=== PATIENT | female | born 1945 | race Caucasian/White ===

== ENCOUNTER 2022-05-30 09:36 | Outpatient (CLI) | payer MEDICARE, BC, SELFPAY | END 2022-05-30 09:37 | disposition home or self-care (01) | LOC: INJ CL 09:37 | PROVIDERS: PCP Physician Assistant Medical; Visit Provider Family Medicine | DX: M54.16 Radiculopathy, lumbar region (principal); M51.36 Other intervertebral disc degeneration, lumbar region | CPT/HCPCS: 62323; J0702; Q9966 ==

== ENCOUNTER 2022-09-13 12:45 | Outpatient (RCR) | payer MEDICARE, BC, SELFPAY | END 2022-10-27 13:21 | disposition home or self-care (01) | PROVIDERS: PCP Physician Assistant Medical; Visit Provider Physician Assistant Medical | DX: M25.571 Pain in right ankle and joints of right foot (principal); Z51.89 Encounter for other specified aftercare | CPT/HCPCS: 97110; 97163; 97530; 97760; 97763 ==

== ENCOUNTER 2023-02-21 09:15 | Outpatient (RCR) | payer MEDICARE, BC, SELFPAY | END 2023-06-21 23:59 | disposition home or self-care (01) | PROVIDERS: PCP Physician Assistant Medical; Visit Provider Family Medicine | DX: M65.332 Trigger finger, left middle finger (principal); Z51.89 Encounter for other specified aftercare | CPT/HCPCS: 97035; 97110; 97140; 97165; 97535; X5282 ==

== ENCOUNTER 2023-08-14 07:52 | Outpatient (CLI) | payer MEDICARE, BC, SELFPAY | END 2023-08-14 07:53 | disposition home or self-care (01) | LOC: INJ CL 07:53 | PROVIDERS: PCP Physician Assistant Medical; Visit Provider Family Medicine | DX: M54.16 Radiculopathy, lumbar region (principal); M51.36 Other intervertebral disc degeneration, lumbar region | CPT/HCPCS: 62323; J0702; Q9966 ==

== ENCOUNTER 2023-09-12 16:00 | Outpatient (RCR) | payer MEDICARE, BC, SELFPAY | END 2023-09-13 07:37 | disposition home or self-care (01) | PROVIDERS: PCP Physician Assistant Medical; Visit Provider Physician Assistant Medical | DX: M54.50 Low back pain, unspecified (principal); Z51.89 Encounter for other specified aftercare | CPT/HCPCS: 97110; 97112; 97116; 97140; 97161; 97164; 97535 ==

== ENCOUNTER 2024-09-21 09:00 | Outpatient (CLI) | payer MEDICARE, BC, SELFPAY | END 2024-09-21 09:01 | disposition home or self-care (01) | LOC: AMB 09-26 01:30 | PROVIDERS: PCP Physician Assistant Medical; Visit Provider Emergency Medicine | DX: K92.0 Hematemesis (principal); R10.9 Unspecified abdominal pain | CPT/HCPCS: A0425; A0427 ==

== ENCOUNTER 2024-09-21 09:27 | Emergency (ER) | payer MEDICARE, BC, SELFPAY ==
[2024-09-21] VITALS (8 sets, daily range): BP systolic 92–110; BP diastolic 62–81; PULSE 69–93; RESP 12–16; TEMP 36.2–36.8; O2SAT 95–98; BMI 28.3
--- NOTE | 2024-09-21 09:48 | ED_ITS ---
HPI - General Adult General Date Seen: 09/21/24 Chief complaint: GI Bleed Stated complaint: Throwing up blood Time Seen by Provider: 09/21/24 09:43 History of Present Illness HPI narrative: Very pleasant 79-year-old female brought to the ER by EMS from her home for hematemesis. She has a past medical history of hypertension, on amlodipine. She also has a history of a heart block with a pacemaker. She has no history of AFib and is not anticoagulated. No known history of diabetes, cancer, stroke, liver disease, esophageal varices. She does have a history of anemia related to upper GI bleeding from an ulcer that occurred in 2019. Apparently that also was related to some pain medications (possibly NSAIDs? ) That she had been taking at that time. She did have an endoscopy here in [place] that confirmed an ulcer. She received transfusion. She has been stable since then. Only current medication is amlodipine. She started to feel a bit unwell yesterday evening and had 1 episode of dark brown emesis. She had had Turkish onion soup for supper so initially thought it was the soup. She felt better when he is able to sleep through the night. She did bring a bucket with her to bed, ?just in case. ?. This morning she woke up feeling weak and movement by vaguely nauseous. She initially thought she might be hungry. She tried to eat a banana. Subsequently she had a loose stool that was very dark colored and probably maroonish or blackish. She had another episode of vomiting this morning. She she vomited dark maroon liquid he blood without clots. EMS reports that she had an injury to of emesis in the bottom of a small staining bucket. Perhaps 1 or 200 mL of volume altogether. She only had 1 episode of emesis. She is feeling weak. EMS reports that her blood pressure was stable laying down but she was symptomatically orthostatic with standing up. Blood pressure is 110/60. Pulse is 100. She has no history of anticoagulation or bleeding diathesis. She has a history of upper GI bleeding 5 years ago that required transfusion. It sounds like that may have them peptic ulcer disease related NSAID use. She no longer uses NSAIDs regularly. She really takes ibuprofen Related Data Home Medications ?Medication ?Instructions ?Recorded ?Confirmed amlodipine 5 mg tablet mg BID 09/21/24 Allergies Allergy/AdvReac Type Severity Reaction Status Date / Time lisinopril Allergy Severe Lip Verified 09/21/24 09:38 swelling nickel Allergy Unknown Verified 09/21/24 09:38 [facility] Surgical History (Updated 05/03/22 @ 09:04 by Torri Prather) Status post total left knee replacement ?Z96.652 - Presence of left artificial knee joint (ICD-10) Social History Smoking Status: Never smoker Do you use any of these nicotine containing products: None How often do you have a drink containing alcohol: never AUDIT-C Alcohol total score: 0 Non-prescribed substance use: denies use Exam Narrative: Exam Narrative: Constitutional: Appears well-developed and well-nourished. Alert. Pale but not mottled or diaphoretic. Conversant. Non toxic. Has dried dark maroon blood on her hands. HENT: Head: Atraumatic. Nose: Nose normal. Mouth/Throat: Oral mucosa is clear but dry. no trismus. Pharynx normal. Tonsils symmetric. No tonsillar enlargement, erythema, or exudate. Eyes: Conjunctivae pale. EOM normal. Pupils equal, round, and reactive to light. No scleral icterus. Neck: Normal range of motion. Neck supple. No tracheal deviation present. Cardiovascular: Normal rate, regular rhythm. No gallop. No friction rub. No murmur heard. Symmetric radial and PT. artery pulses . Normal distal cap refill but skin is pale. paced rhythm on the monitor. Pulmonary/Chest: Effort normal. No stridor. No respiratory distress. No wheezes. No rales. No rhonchi . Abdominal: Soft. Bowel sounds normal. No distension. No mass. No tenderness. No rebound. No guarding. Musculoskeletal: RUE: Normal range of motion. No tenderness. No deformity LUE: Normal range of motion. No tenderness. No deformity RLE: Normal range of motion. No edema. No tenderness. No deformity LLE: Normal range of motion. No edema. No tenderness. No deformity Neurological: Alert and oriented to person, place, and time. Normal strength. CN II-VII intact. No sensory deficit. GCS eye subscore is 4. GCS verbal subscore is 5. GCS motor subscore is 6. Normal coordination Skin: Skin is warm and dry. Pale but not mottled or diaphoretic. No rash noted. No pallor. Normal capillary refill. Psychiatric: Normal mood. Normal affect. Very pleasant. Const: Vital Signs, click to edit/add: Vital Signs - 24 hr 09/21/24 09:38 09/21/24 09:39 09/21/24 10:01 Temperature 97.3 F L Pulse Rate 93 93 Pulse Rate [Pulse Oximeter] 93 Respiratory Rate 14 14 16 Blood Pressure 110/81 105/69 Blood Pressure [Ri ght Upper Arm] 110/81 Pulse Oximetry 97 98 98 Oxygen Delivery Me thod Room Air Room Air 09/21/24 10:30 09/21/24 11:01 09/21/24 11:11 Temperature 98.3 F Pulse Rate 87 82 87 Pulse Rate [Pulse Oximeter] Respiratory Rate 12 14 12 Blood Pressure 92/62 98/64 104/63 Blood Pressure [Ri ght Upper Arm] Pulse Oximetry 96 97 95 Oxygen Delivery Me thod Room Air Room Air Course Course ED Course: Recheck-blood pressure stable. Symptomatic when standing up. Would be too dizzy to even stay standing up for orthostatic blood pressure measurement. Discussed with our surgeon, Dr. Mullins. She is not able to perform endoscopy. Therefore since the patient will likely need endoscopy today, will need transfer to a GI capable hospital. Patient has had previous care at [facility]. She would be agreeable to transfer to that facility. Reevaluation(s) Reevaluation #1: Recheck-feeling fine lying in bed. Still pale. Second IV established.. Unfortunately initial blood drawn for laboratory workup was coagulated. Needs to be redrawn. Reevaluation #2: Discussed through the online transfer line with the graphic design manager, Dr. Kessler. Although the patient is currently hemodynamically stable she is very symptomatic and pale and had have large volume GI bleed this morning. She will accept the patient to go to the ICU since that is the most immediately available bed and can be monitored hemodynamically, in case she decompensates. Reevaluation #3: Recheck-patient has family at bedside. She remains hemodynamically stable and relatively asymptomatic while resting in bed. Still gets dizzy when sitting up. Verbal and written consent obtained in anticipation ahead of likely blood transfusion. Recheck-hemoglobin came back at 8.3. She is anemic and I suspect true hemoglobin is probably lower since she did have active acute bleeding this morning and has not yet had time to hemodilute. Blood transfusion is indicated. Unfortunately cross matches been delayed due to difficulty with lab. Blood type is unknown. Patient has a bed assigned in the ICU at [place]. We will [facility] release blood matching her blood type here in the ER. She will be transferred by EMS with the blood transfusion occurring. Vital Signs Vital signs: Initial Vital Signs Pulse Rate 93 09/21/24 09:38 Respiratory Rate 14 09/21/24 09:38 Blood Pressure 110/81 09/21/24 09:38 Blood Pressure Mean 90 09/21/24 09:38 Pulse Oximetry 97 09/21/24 09:38 Vital Signs Pulse Rate 93 09/21/24 09:38 Respiratory Rate 14 09/21/24 09:38 Blood Pressure 110/81 09/21/24 09:38 Pulse Oximetry 97 09/21/24 09:38 Temperature 98.3 F 09/21/24 11:11 Pulse Rate 87 09/21/24 11:11 Respiratory Rate 12 09/21/24 11:11 Blood Pressure 104/63 09/21/24 11:11 Pulse Oximetry 95 09/21/24 11:11 Oxygen Delivery Method Room Air 09/21/24 11:11 Medications Administered Medications: Generic Name Dose Route Start Last Admin Trade Name Freq PRN Reason Stop Dose Admin Sodium Chloride 1,000 mls @ 150 mls/hr 09/21/24 10:36 09/21/24 11:16 0.9 % Sodium Chloride 1000 Ml IV 150 mls/hr .[id number] GAEL Administration Discontinued Medications Generic Name Dose Route Start Last Admin Trade Name Freq PRN Reason Stop Dose Admin Pantoprazole Sodium 80 mg 09/21/24 09:46 09/21/24 09:54 Pantoprazole Sodium 40 Mg Inj IVP 09/21/24 09:47 80 mg ONCE ONE Administration Medical Decision Making MDM Narrative Medical decision making narrative: Very pleasant 79-year-old female presenting with an acute episode of GI bleeding, presumably upper since she had dark maroon hematemesis. She also had a large dark maroon stool this morning. She is not having any abdominal pain. Differential here would include peptic ulcer disease, varices, AVM, among others. She has a known history of peptic ulcer disease. She has no history of liver disease or reason for her to have esophageal varices. Started on IV Protonix. We stab list 2 large-bore peripheral IVs. We started saline for maintenance. Since the patient is symptomatic from blood loss I think she needs volume repletion with blood. Will start initial transfusion of packed red cells here in the ER. Her blood pressure is normal laying down. She is not diaphoretic or models or actively going and immediately life-threatening shock. However I think she is in a compensated state of shock, but she is very pale and very symptomatic from blood loss and anemia. She will clearly require hospitalization. We do not have the capacity to perform endoscopy to evaluate/treat upper GI bleeding here in [facility] today. Therefore transfers indicated. Transfer is arranged to [facility]. She will be transferred via EMS with her blood transfusion ongoing. Other labs back at the time of transport show a white count 11.4, INR of 1 point 0 9. Normal electrolytes. Normal creatinine at 0.9 but elevated BUN suggesting upper GI bleed. LFTs normal. Lab Data Labs: Lab Results 09/21/24 Range/Units 10:30 WBC 11.44 H (4.50-11.00) K/uL RBC 2.67 L (4.00-5.20) m/uL Hgb 8.3 L (12.0-16.0) gm/dL Hct 25.7 L (33.0-51.0) % MCV 96 (80-100) fL MCH 31 (26-34) pg MCHC 32 (32-36) gm/dL RDW Coeff of Fátima 14.4 (11.5-15.5) % Plt Count 137 L (140-440) K/uL Neut % (Auto) 82.3 H (42.0-72.0) % Lymph % (Auto) 10.1 L (20-44) % [place] % (Auto) 5.9 (0.0-11.0) % Eos % (Auto) 0.3 (0.0-7.0) % Baso % (Auto) 0.5 (0.0-3.0) % Neut # (Auto) 9.40 H (1.7-7.0) K/uL Lymph # (Auto) 1.20 (0.90-2.90) K/uL [place] # (Auto) 0.70 (0.00-0.90) K/UL Eos # (Auto) 0.00 (0.00-0.50) K/uL Baso # (Auto) 0.10 (0.00-0.30) K/uL Abs Immat Gran (auto) 0.10 (0.00-0.30) K/uL Imm/Tot Granulo (auto) 0.9 % INR 1.06 (0.91-1.10) Sodium 138 (135-149) mmol/L Potassium 4.2 (3.6-5.1) mmol/L Chloride 109 (96-114) mmol/L Carbon Dioxide 23 (20-32) mmol/L Anion Gap 6 L (7-15) mEq/L BUN 64 H (7-30) mg/dL Creatinine 0.9 (0.5-1.5) mg/dL Estimated Creat Clear 37.74 Estimated GFR 65 ml/min Glucose 131 H (60-115) mg/dL Lactate 1.5 (0.5-1.9) mmol/L Calcium 8.3 L (8.4-10.6) mg/dL Total Bilirubin 0.2 (0.1-1.5) mg/dL AST 23 (12-35) U/L ALT 11 (4-35) U/L Alkaline Phosphatase 64 (40-150) U/L Total Protein 4.9 L (6.0-8.3) g/dL Albumin 2.9 L (3.3-5.0) g/dL Crossmatch (AHG) See Detail Critical Care Time Critical Care Time Critical Care Time: Yes Attestation: The patient required my highest level preparedness to intervene emergently and I personally spent this critical care time directly and personally managing the patient. This critical care time included: Obtaining a history; Examining the patient; Pulse oximetry; Ordering and reviewing of studies; Arranging urgent treatment with development of a management plan; Evaluation of patients response to treatment; Frequent reassessment discussions with other providers. This critical care time was performed to assess and manage the high probability of imminent life-threatening deterioration that could result in multiorgan failure. It was exclusive of separate billable procedures and treating other patients and teaching time. Total Critical Care Time in Minutes: 30 Discharge Plan Discharge Clinical Impression: Acute upper gastrointestinal bleeding, Dizziness Patient Disposition: [facility] Condition: Guarded Prescriptions: No Action amlodipine 5 mg tablet BID Stand Alone Forms: [employer] Info Instructions
[2024-09-21] MEDS: PANTOPRAZOLE SODIUM 40 MG INJ 80 MG IVP (09:54)
[2024-09-21 10:36] LABS: Lactate* 1.5 mmol/L (0.5-1.9)
[2024-09-21 10:39] LABS: Basophils Percent Auto 0.5 % (0.0-3.0); Eosinophils Percent Auto 0.3 % (0.0-7.0); Hematocrit 25.7 % (33.0-51.0); Hemoglobin* 8.3 gm/dL (12.0-16.0); Immature Granulocytes Pct Auto 0.9 %; Lymphocytes Percent Auto 10.1 % (20-44); Mean Corpuscular HGB Conc 32 gm/dL (32-36); Mean Corpuscular Hemoglobin 31 pg (26-34); Mean Corpuscular Volume 96 fL (80-100); Monocytes Percent Auto 5.9 % (0.0-11.0); Neutrophils Percent Auto 82.3 % (42.0-72.0); Platelet Count* 137 K/uL (140-440); RDW Coefficient of Variation % 14.4 % (11.5-15.5); Red Blood Count 2.67 m/uL (4.00-5.20); Slide Review Reflex No; White Blood Count* 11.44 K/uL (4.50-11.00)
[2024-09-21 10:59] LABS: Albumin* 2.9 g/dL (3.3-5.0); Chloride* 109 mmol/L (96-114); Potassium* 4.2 mmol/L (3.6-5.1); Sodium* 138 mmol/L (135-149)
[2024-09-21 11:01] LABS: Anion Gap 6 mEq/L (7-15); Aspartate Amino Transferase* 23 U/L (12-35); Bilirubin Total* 0.2 mg/dL (0.1-1.5); Carbon Dioxide* 23 mmol/L (20-32); Creatinine* 0.9 mg/dL (0.5-1.5); Est. Creatinine Clearance* 37.74; Estimated Glomerular Filt Rate 65 ml/min; Total Protein* 4.9 g/dL (6.0-8.3)
[2024-09-21 11:02] LABS: Alanine Aminotransferase* 11 U/L (4-35); Alkaline Phosphatase* 64 U/L (40-150); Blood Urea Nitrogen* 64 mg/dL (7-30); Calcium* 8.3 mg/dL (8.4-10.6); Glucose* 131 mg/dL (60-115)
[2024-09-21 11:10] LABS: INR 1.06 (0.91-1.10); Prothrombin Time 14.5 Seconds
[2024-09-21] MEDS: 0.9 % SODIUM CHLORIDE 1000 ml 1,000 ML 150 ML IV (11:16)
== END 2024-09-21 11:50 | disposition short-term general hospital (02) ==
PROVIDERS: Emergency Provider Emergency Medicine; PCP Physician Assistant Medical
DX: R42 Dizziness and giddiness (principal)
CPT/HCPCS: 36415; 36430; 80053; 83605; 85025; 85610; 86850; 86900; 86901; 86922; 93005; 96374; 99285; 99291; J2470; J7030; P9016

== ENCOUNTER 2024-09-21 11:52 | Outpatient (CLI) | payer MEDICARE, BC, SELFPAY | END 2024-09-21 11:53 | disposition home or self-care (01) | LOC: AMB 10-03 13:48 | PROVIDERS: PCP Physician Assistant Medical; Visit Provider Emergency Medicine | DX: K92.2 Gastrointestinal hemorrhage, unspecified (principal) | CPT/HCPCS: A0425; A0427 ==